=== PATIENT | male | born 1950 | race Caucasian/White ===

== ENCOUNTER 2024-08-29 12:05 | Inpatient (IN) | payer OTHER ==
[~2024-08-29] VITALS: Ht 177.8 cm; Wt 63.6 kg
[2024-08-29] VITALS (8 sets, daily range): BP systolic 111–120; BP diastolic 60–78; PULSE 131–149; RESP 16–36; O2SAT 77–94
--- NOTE | 2024-08-29 12:45 | ED.PDOC ---
History of Present Illness HPI Comments 74 y/o M, with a Hx of lung CA IV s/p left lobectomy, COPD, former tobacco use, and neuropathy, presents with c/o generalized weakness and tremors, nausea, watery-diarrhea, and poor appetite, today. Per EMS report, patient endorses on unprovoked and gradual onset of symptoms that have been persisting for the past 3-4x days. Patient was commented to have been found by EMS staff on scene with a SpO2 in the 70's RA, systolic pressure of 106, pulse rate of 130, and a blood glucose of 80. He was then stated to have been placed on 4LPM O2, with SpO2 improving to 86-88%. Patient reports no further additional relevant or pertinent Hx, with exception of finishing his chemotherapy for his lung CA on 08/20/24. He denies having any shortness of breath, chest pain, abdominal pain, vomiting, urinary symptoms, fever, chills, or other associated symptoms or modifiers at this time. Chief Complaint: General Weakness Time Seen by MD: 12:30 Primary Care Provider: PETER Reviewed Notes: Nurses Notes, Sort Manager Notes, Medications, Allergies Allergies: Coded Allergies: Tetanus Toxoid (Verified Allergy, SWELLING, 09/06/12) Information Source: Patient, Emergency Med Personnel Mode of Arrival: EMS Severity: Moderate Timing: Days Duration: Since onset Prehospital treatment: 12 Lead EKG, Accucheck, Geotechnical Field Technician, Oxygen Past Medical History PAST MEDICAL HISTORY: Cancer (lung CA IV s/p left lobectomy), COPD Past Medical History (Other): neruopathy Surgical History: Denies all surgeries Surgical History (Other): left lobectomy Family History Family History: Unobtainable Social History Smoker: Non-Smoker, Quit Greater Than 1 Year Alcohol: Denies ETOH Use Drugs: Denies Drug Use Lives In: Home Constitutional: denies: chills, diaphoresis, fatigue, fever, malaise, sweats, weakness, others EENTM: denies: blurred vision, double vision, ear bleeding, ear discharge, ear drainage, ear pain, ear ringing, eye pain, eye redness, hearing loss, mouth pain, mouth swelling, nasal discharge, nose bleeding, nose congestion, nose pain, photophobia, tearing, throat pain, throat swelling, voice changes, others Respiratory: denies: cough, hemoptysis, orthopnea, SOB at rest, shortness of breath, SOB with excertion, stridor, wheezing, others Cardiovascular: denies: chest pain, dizzy spells, diaphoresis, Dyspnea on exertion, edema, irregular heart beat, left arm pain, lightheadedness, palpitations, PND, syncope, others Gastrointestinal: reports: diarrhea, nausea, poor appetite; denies: abdomen distended, abdominal pain, blood streaked bowels, constipated, dysphagia, difficulty swallowing, hematemesis, melena, poor fluid intake, rectal bleeding, rectal pain, vomiting, others Genitourinary: denies: burning, dysuria, flank pain, frequency, hematuria, incontinence, penile discharge, penile sore, pain, testicle pain, testicle swelling, urgency, others Neurological: reports: tremors, weakness; denies: dizziness, fainting, headache, left sided numbness, left sided weakness, numbness, paresthesia, pre- existing deficit, right sided numbness, right sided weakness, seizure, speech problems, tingling, others Musculoskeletal: denies: back pain, gout, joint pain, joint swelling, muscle pain, muscle stiffness, neck pain, others Integumetry: denies: bruises, change in color, change in hair/nails, dryness, laceration, lesions, lumps, rash, wounds, others Allergic/Immunocompromised: denies: Difficulty Healing, Frequent Infections, Hives, Itching, others Hematologic/Lymphatic: denies: anemia, blood clots, easy bleeding, easy bruising, swollen glands, others Endocrine: denies: excessive hunger, excessive sweating, excessive thirst, excessive urination, flushing, intolerance to cold, intolerance to heat, unexplained weight gain, unexplained weight loss, others Psychiatric: denies: anxiety, bipolar disorder, depression, hopeless, panic disorder, schizophrenia, sleepless, suicidal, others All Other Systems: Reviewed and Negative Physical Exam General Appearance: Moderate Distress HEENT: Pale Conjuntivae (L), Pale Conjuntivae (R), Pharynx Normal, TMs Normal Neck: Full Range of Motion, Non-Tender, Normal, Normal Inspection Respiratory: Chest Non-Tender, Lungs Clear, No Accessory Muscle Use, No Respiratory Distress, Normal Breath Sounds Cardiovascular: No Edema, No JVD, No Murmur, No Gallop, Normal Peripheral Pulses, Regular Rate/Rhythm Breast Exam: Deferred Gastrointestinal: No Organomegaly, Non Tender, No Pulsatile Mass, Normal Bowel Sounds, Soft Genitalia: Deferred Pelvic: Deferred Rectal: Deferred Extremities: No calf tenderness, Normal capillary refill, Normal inspection, Normal range of motion, Non-tender, No pedal edema Musculoskeletal : Apperance: Normal Neurologic: Alert, machine long goods helper II-XII nml as Tested, Motor Weakness, Normal Affect, Normal Mood, No Sensory Deficits Cerebellar Function: Unable to Test Reflexes: Normal Skin: Dry, Pallor, Warm Lymphatic: No Adenopathy Was a procedure done? Was a procedure done?: No EKG EKG : Pulse Rate (adult): 133 [place]: Normal Cardiac Rhythm: ST Block: None Hypertrophy: None ST: Normal Differential Dx Considerations may include: viral syndrome, URI, covid19, bronchitis, PNA, pleural effusions, acute respiratory distress, electrolyte imbalance, malnutrition, dehydration, gastritis, gastroenteritis X-Ray, Labs, Meds, VS Vital Signs Date Time Temp Pulse Resp B/P (MAP) Pulse Ox O2 Delivery O2 Flow Rate FiO2 08/29/24 12:45 133 08/29/24 12:25 140 19 93 Nasal Cannula* 4 36 08/29/24 12:25 140 19 163/72 (102) 93 08/29/24 12:10 133 08/29/24 12:05 97.9 130 20 108/68 (81) 88 Lab Test 08/29/24 15:03 08/29/24 13:15 Range/Units White Blood Count Pending Red Blood Count Pending Hemoglobin Pending Hematocrit Pending Mean Corpuscular Volume Pending Mean Corpuscular Hemoglobin Pending Mean Corpuscular Hemoglobin Concent Pending Red Cell Distribution Width Pending Platelet Count Pending Mean Platelet Volume Pending Neutrophils (%) (Auto) Pending Lymphocytes (%) (Auto) Pending Monocytes (%) (Auto) Pending Basophils (%) (Auto) Pending Neutrophils # (Auto) Pending Lymphocytes # (Auto) Pending Monocytes # (Auto) Pending Sodium Level 133 L 136-145 mmol/L Potassium Level 3.7 3.5-5.1 mmol/L Chloride Level 100 98-107 mmol/L Carbon Dioxide Level 19 L 20-31 mmol/L Anion Gap 14 5-15 Blood Urea Nitrogen 50 H 9-23 mg/dL Creatinine 2.42 H 0.700-1.30 mg/dL Glomerular Filtration Rate Calc 27 >90 mL/min BUN/Creatinine Ratio 20.7 H 10.0-20.0 Serum Glucose 73 L 74-106 mg/dL Calcium Level 9.2 8.7-10.4 mg/dL Total Bilirubin 0.5 0.2-1.0 mg/dL Aspartate Amino Transferase (AST) 42 H 13-40 U/L Alanine Aminotransferase (ALT) 29 7-40 U/L Alkaline Phosphatase 132 H 46-116 U/L Total Protein 6.6 5.7-8.2 g/dL Albumin 3.9 3.2-4.8 g/dL Current Medications Medications (Trade) Dose Ordered Sig/Emma Route Start Time Stop Time Status Last Admin Sodium Chloride 500 ml @ 500 mls/hr Q1H ONCE IV 08/29/24 12:30 08/29/24 13:29 DC 08/29/24 13:42 Sodium Chloride 1,000 ml @ 1,000 mls/hr Q1H ONCE IV 08/29/24 15:15 08/29/24 16:14 08/29/24 15:14 IV Hep-Lock was established. The patient was initially given normal saline at a 500 cc bolus We have repeat the normal saline bolus at 1000 cc. The chemistry panel shows a BUN of 50 and a creatinine of 2.42 The CO2 level is 19 The patient continues to have a significant amount of diarrhea so rectal tube was placed. We are sending the stool off for C diff. We feel that the patient was severely dehydrated so we will continue to hydrate the patient. We did speak with Peter (Dr. Almaraz) The authorization number for admission is [id number] We discussed the findings with the patient and they are in agreement with the management. Time of 1ST Reevaluation: 13:00 Reevaluation 1ST: Unchanged Time of 2ND Reevaluation: 15:38 Reevaluation 2ND: Unchanged Patient Education/Counseling: Diagnosis, Treatment, Prognosis Family Education/Counseling: No Family Present Departure 1 Departure Time of Disposition: 15:38 Impression: Primary Impression: Dehydration Additional Impressions: Diarrhea Qualified Codes: R19.7 - Diarrhea, unspecified Status post chemotherapy Hypotension Qualified Codes: I95.9 - Hypotension, unspecified Disposition: 09 ADMITTED INPATIENT Admit to: Tele Condition: Fair Critical Care Note Critical Care Time?: No Stability Stability form required: Yes Unstable for transfer: Telemetry monitoring (Telemetry monitoring required), ED Physician Assesment (Clinical assesment) Heart Score Heart Score: Heart Score Response (Comments) Value History Moderate Suspicious 1 EKG Normal 0 Age >65 2 Risk Factors >3 or Hx ASHD 2 Troponin N/A 0 Total 5 I personally scribed for DEJA ARIZMENDI MD ([email or web address]) on 08/29/24 at 12:45. Electronically submitted by Placido Dumont ([email or web address]). DEJA ARIZMENDI MD Aug 29, 2024 12:45
[2024-08-29] MEDS: SODIUM CHLORIDE 0.9% 500 ML IV ONE ×3 (13:42→21:35)
[2024-08-29 13:52] LABS: Alanine Aminotransferase 29 U/L (7-40); Albumin 3.9 g/dL (3.2-4.8); Anion Gap 14 (5-15); BUN/Creatinine Ratio 20.7 (10.0-20.0); Bilirubin, Total 0.5 mg/dL (0.2-1.0); Calcium 9.2 mg/dL (8.7-10.4); Chloride 100 mmol/L (98-107); Potassium 3.7 mmol/L (3.5-5.1); Total Protein 6.6 g/dL (5.7-8.2)
[2024-08-29 13:58] LABS: Alkaline Phosphatase 132 U/L (46-116); Aspartate Aminotransferase 42 U/L (13-40); Blood Urea Nitrogen 50 mg/dL (9-23); Carbon Dioxide 19 mmol/L (20-31); Glucose 73 mg/dL (74-106); Sodium 133 mmol/L (136-145)
[2024-08-29] MEDS: SODIUM CHLORIDE 0.9% 1,000 ML IV ONE ×3 (15:14→19:20)
[2024-08-29] MEDS: NOREPINEPHRINE 8 MG/250ML KIT 250 ML IV SCH (16:23)
[2024-08-29] MEDS ORDERED: BUPR150T8 PO (16:29)
[2024-08-29] MEDS ORDERED: ATOR10TA PO (16:29)
[2024-08-29] MEDS ORDERED: GABA-1308 PO (16:29)
[2024-08-29] MEDS ORDERED: HYDR-4491 PO (16:29)
[2024-08-29] MEDS ORDERED: ZOFR4T PO (16:29)
[2024-08-29] MEDS ORDERED: MET10LQ PO (16:32)
[2024-08-29] MEDS ORDERED: FLUT0.05 INH (16:32)
[2024-08-29] MEDS ORDERED: TIOT17SP IN (16:32)
[2024-08-29] MEDS ORDERED: LEVA3NEB IN (16:48)
[2024-08-29 17:03] LABS: Urine Bacteria None Seen /hpf (None Seen)
[2024-08-29 17:17] LABS: Urine Blood Negative /uL (Negative); Urine Clarity Turbid (Clear); Urine Color Yellow (Yellow); Urine Mucus FEW (None Seen); Urine Protein, UAD 1+ (Negative); Urine Specific Gravity 1.023 (1.001-1.035); Urine Squamous Epithelial Cell FEW /hpf (<5); Urine Urobilinogen Normal (Negative); Urine WBC 10 /hpf (0 - 3); Urine pH 5.5 (5.0-9.0)
[2024-08-29 17:27] LABS: Basophils # (auto) 0 10 ^3/uL (0-0.2); Basophils % (auto) 0.2 % (0.0-2.0); Eosinophils # (auto) 0 10 ^3/uL (0-0.8); Eosinophils % (auto) 1.4 % (0.0-7.0); Hematocrit 22.2 % (41.0-53.0); Hemoglobin 7.1 g/dL (13.5-17.5); Lymphocytes # (auto) 0.2 10 ^3/uL (0.4-5.4); Lymphocytes % (auto) 38.5 % (10.0-50.0); Mean Corpuscular Volume 97.1 fL (80.0-100.0); Monocytes # (auto) 0 10 ^3/uL (0-1.3); Monocytes % (auto) 4.9 % (0.0-12.0); Neutrophils # (auto) 0.2 10 ^3/uL (1.6-8.6); Platelet Count (auto) 55 10^3/uL (140-450); Red Blood Cells 2.29 10^6/uL (4.5-5.90)
[2024-08-29 17:28] LABS: Red Cell Distribution Width 21.6 % (11.8-14.3)
[2024-08-29 17:29] LABS: White Blood Cell 0.4 10^3/uL (4.4-10.8)
[2024-08-29] MEDS: LORazepam 2MG/ML-1ML VIAL IV ONE (17:56)
[2024-08-29] MEDS: SUCCINYLCHOLINE CHLORIDE 20 MG/ML 10ML VIAL IV ONE (18:26)
[2024-08-29] MEDS: ETOMIDATE (2MG/ML) 20ML VIAL IV ONE (18:26)
[2024-08-29] MEDS: MIDAZOLAM DRIP 50 mg/50mL 50 ML IV SCH (18:30)
[2024-08-29] MEDS ORDERED: NOREPINEPHRINE 8 MG/250ML KIT 250 ML IV SCH (18:30)
[2024-08-29] MEDS: MIDAZOLAM DRIP 50 mg/50mL 50 ML IV ONE (18:51)
--- NOTE | 2024-08-29 19:00 | ECG ---
[facility] Test Date: 2024-08-29 Test Time: 12:03:28 Pat Name: ODESSA WERNER Department: ED Room: [address] [place] [address] Gender: M Esl Professor: ALBERT : 1950 Requested By: DEJA ARIZMENDI Order Number: [id number] Reading MD: Valdo Box Measurements Intervals [place] Rate: 133 P: 85 NH: 136 QRS: 86 QRSD: 72 T: -27 QT: 291 QTc: 433 Interpretive Statements Sinus tachycardia Atrial premature complexes Anterior infarct, old Borderline ST depression, diffuse leads Electronically Signed On 08-30-2024 9:23:44 PST by Valdo Box Please click the below link to view image of tracing.
[2024-08-29 19:02] LABS: INR 1.42 (0.9-1.15); Partial Thromboplastin Time 43.1 SEC (24.5-34.5); Prothrombin Time 14.7 sec (9.3-11.8)
[2024-08-29 19:18] LABS: Anisocytosis Slight; Platelet Estimate Decreased
--- NOTE | 2024-08-29 19:58 | DVH ---
EXAM: XY CHEST PORTABLE CLINICAL HISTORY: aloc TECHNIQUE: Single AP view of the chest WID: COMPARISON: None FINDINGS: Lines and tubes: Endotracheal tube projects 2.5 cm above the mariela. Gastric tube descends beneath th e level of the diaphragm and tip not visualized in field of view. Chest: The heart size and pulmonary vasculature is within normal limits. Diffuse mixed airspace opacities throughout the left lung and few patchy mixed airspace opacities in the right lung. Hyperexpansion of the lungs. Lung apices are not entirely included in the field of v iew. The osseous structures are grossly intact. IMPRESSION: 1. Endotracheal tube projects 2.5 cm above the mariela. Orogastric tube descends beneath the level of the diaphragm into the stomach and tip not visualized in field of view. 2. Diffuse mixed airspace opacities in the left lung and few mixed airspace opacities in the right priyanka ng which could reflect multifocal pneumonia. 3. Hyperexpansion of the lungs which could be COPD or emphysema.
--- NOTE | 2024-08-29 20:18 | DVHHPRES ---
History of Present Illness Resident Creating Document: TIN SINGH RESIDENT History of Present Illness Mr. Higgins, a 74-year-old male with a history of stage IV lung cancer (post left lobectomy), COPD, former tobacco use, and neuropathy, presented with generalized weakness, tremors, nausea, watery diarrhea, and poor appetite over the past 3-4 days. EMS found him with low oxygen saturation (SpO2 in the 70s), a systolic pressure of 106, a pulse rate of 130, and a blood glucose of 80. His SpO2 improved to 86-88% on 4LPM O2. He recently completed chemotherapy on 08/20/24 (details unknown). He denies shortness of breath, chest pain, abdominal pain, vomiting, urinary symptoms, fever, or chills. Prehospital treatment included oxygen therapy, cardiac monitoring, and intubation. He was successfully intubated with a 7.0 endotracheal tube, with breath sounds present on the right but decreased on the left due to the previous lobectomy. A chest X-ray shows left lower lobectomy with concerning lobar pneumonia. Patient is in sepsis and neutropenic on levophed, IV abx, intubated and sedated in ICU status. Extremely limited history. Cardiovascular: hyperipidemia Pulmonary: COPD Heme/Onc: Anemia NOS, Cancer, Other (chemopherapy ) Musculoskeletal: Osteoarthritis Rheumatologic: Rheumatoid arthritis Past Surgical History: Other (lung resection. ) Family History: None Smoke: Quit (prior ) Drugs: Other Lives: with Family Domestic Violence: Neg Review of Systems Review of Systems Unable to review the ROS as patient is intubated and sedated. Allergies: Coded Allergies: Tetanus Toxoid (Verified Allergy, Unknown, SWELLING, 08/29/24) Medications Current Medications Medications Dose Ordered Sig/Emma Route Start Time Stop Time Status Last Admin Dose Admin Norepinephrine Bitartrate 250 ml @ 3.75 mls/hr Q24H IV 08/29/24 15:30 08/29/24 16:25 3.75 MLS/HR Midazolam HCl 50 ml @ 1 mls/hr Q24H IV 08/29/24 18:30 08/29/24 18:30 5 MLS/HR Norepinephrine Bitartrate 250 ml @ 3.75 mls/hr Q24H IV 08/29/24 18:30 UNV Exam Vital Signs Vital Signs Date Time Temp Pulse Resp B/P (MAP) Pulse Ox O2 Delivery O2 Flow Rate FiO2 08/29/24 19:30 145/84 08/29/24 19:30 149 32 88 08/29/24 18:34 85 08/29/24 16:45 98.9 98.9 08/29/24 16:33 Oxymizer 8 Exam RASS -1 -2 on sedation and analgesics. Limited exam due to above. General Appearance: Other (sedated and intubated. ) HEENT: Other (dry mucosa. ) Respiratory: Other (equal respiratory movement. intubated. left lower lobe no aeration. ) Cardiovascular: Regular rate, Normal S1, Normal S2, No murmurs, Gallops, Rubs, Other (tachycardia ) Abdominal: Normal bowel sounds, Soft, No hepatospenomegaly, No masses Extremities: No clubbing, No cyanosis, No edema, No tenderness/swelling, Other (mottling. ) Skin: No significant lesion (patient is pale. ) Neuro: Other (unable to obtain ) Psych/Mental Status: Other (unable to obtain ) Labs/Xrays Labs Test 08/29/24 18:21 08/29/24 17:54 08/29/24 16:48 08/29/24 16:09 Range/Units Prothrombin Time 14.7 H 9.3-11.8 sec Prothrombin Time INR 1.42 H 0.9-1.15 Activated Partial Thromboplast Time 43.1 H 24.5-34.5 SEC POC Glucose 89 70-106 mg/dl White Blood Count 0.4 *L 4.4-10.8 10^3/uL Red Blood Count 2.29 L 4.5-5.90 10^6/uL Hemoglobin 7.1 L 13.5-17.5 g/dL Hematocrit 22.2 L 41.0-53.0 % Mean Corpuscular Volume 97.1 80.0-100.0 fL Mean Corpuscular Hemoglobin 31.0 28.0-32.0 pg Mean Corpuscular Hemoglobin Concent 32.0 32.0-36.0 g/dL Red Cell Distribution Width 21.6 H 11.8-14.3 % Platelet Count 55 L 140-450 10^3/uL Mean Platelet Volume 9.5 6.9-10.8 fL Neutrophils (%) (Auto) 55.0 37.0-80.0 % Lymphocytes (%) (Auto) 38.5 10.0-50.0 % Monocytes (%) (Auto) 4.9 0.0-12.0 % Eosinophils (%) (Auto) 1.4 0.0-7.0 % Basophils (%) (Auto) 0.2 0.0-2.0 % Neutrophils # (Auto) 0.2 L 1.6-8.6 10 ^3/uL Lymphocytes # (Auto) 0.2 L 0.4-5.4 10 ^3/uL Monocytes # (Auto) 0 0-1.3 10 ^3/uL Eosinophils # (Auto) 0 0-0.8 10 ^3/uL Basophils # (Auto) 0 0-0.2 10 ^3/uL Nucleated Red Blood Cells 1.0 % Platelet Estimate Decreased Anisocytosis (manual) Slight Urine Color Yellow Yellow Urine Clarity Turbid H Clear Urine pH 5.5 5.0-9.0 Urine Specific [place] 1.023 1.001-1.035 Urine Protein 1+ H Negative Urine Ketones Negative Negative Urine Blood Negative Negative /uL Urine Nitrite Negative Negative Urine Bilirubin Negative Negative Urine Urobilinogen Normal Negative mg/dL Urine Leukocyte Esterase Negative Negative /uL Urine RBC 1 0 - 3 /hpf Urine WBC 10 0 - 3 /hpf Urine Squamous Epithelial Cells Few <5 /hpf Urine Bacteria None seen None Seen /hpf Urine Mucus Few None Seen Urine Glucose Normal Normal mg/dL Test 08/29/24 13:15 Range/Units Sodium Level 133 L 136-145 mmol/L Potassium Level 3.7 3.5-5.1 mmol/L Chloride Level 100 98-107 mmol/L Carbon Dioxide Level 19 L 20-31 mmol/L Anion Gap 14 5-15 Blood Urea Nitrogen 50 H 9-23 mg/dL Creatinine 2.42 H 0.700-1.30 mg/dL Glomerular Filtration Rate Calc 27 >90 mL/min BUN/Creatinine Ratio 20.7 H 10.0-20.0 Serum Glucose 73 L 74-106 mg/dL Calcium Level 9.2 8.7-10.4 mg/dL Total Bilirubin 0.5 0.2-1.0 mg/dL Aspartate Amino Transferase (AST) 42 H 13-40 U/L Alanine Aminotransferase (ALT) 29 7-40 U/L Alkaline Phosphatase 132 H 46-116 U/L Total Protein 6.6 5.7-8.2 g/dL Albumin 3.9 3.2-4.8 g/dL Assessment/Plan Assessment/Plan Assessment: Mr. Higgins, a 74-year-old male with a history of stage IV lung cancer (post left lobectomy), COPD, former tobacco use, and neuropathy, presented with generalized weakness, tremors, nausea, watery diarrhea, and poor appetite over the past 3-4 days, was found by EMS with low oxygen saturation and other concerning vitals, recently completed chemotherapy, and is now intubated and sedated in ICU with sepsis and neutropenia, receiving Levophed and IV anti biotics. Plan: # community-acquired pneumonia: left lower lobe on IV antibiotics vancomycin + meropenam, intubated sedated. CT chest pending. Other viral pathologies and atypical to check. # history of lung cancer, status post left lower lobe lobectomy: noted in x-ray # ongoing chemotherapy with bone marrow suppression # septic shock : sepsis protocol, Levophed, IV fluid, antibiotics, check lactate # pancytopenia: follow lab CBC with diff. # altered level of consciousness: Likely metabolic versus toxic , treat underlying condition. Continue intubation and analgesia. # known COPD: On home inhalers, continue ipratropium and levalbuterol. # history of tobacco abuse # lung cancer on chemotherapy: Last therapy in [facility] indetails unknown. # diarrhea: Rule out intra-abdominal infection, C diff colitis test pending. CT abdomen pelvis pending. # hypotension: Keep the MAP over 65 , echo, EKG, troponin, BNP, rule out ACS # acute hypoxic respiratory failure: Patient on intubation, keep the patient's SpO2 88-92%. # peripheral neuropathy: the patient is on gabapentin at home we will consider restarting at recovery. # dyslipidemia on statin at home: starting when tolerate oral # thrombocytopenia, moderate: Trend, avoid aspirin and all sorts of heparin. # normocytic anemia: 7.1 hemoglobin, transfusion threshold 7. # to rule out PE/thromboembolism: D-dimer, chest CT pending. US DVT # neutropenia: Absolute neutrophil count less than 1500, patient is on broad- spectrum antibiotics, neutropenic precautions # anxiety depression: Patient on bupropion, we will resume when patient is more awake alert. # rheumatoid arthritis: Leflunomide, ibuprofen, hydroxychloroquine: Overall physical examination unremarkable for any septic arthritis and source of infection. PUD prophylaxis: IV protonix 40mg continue DVT prophylaxis: Lovenox 40mg avoid on SCD. Barriers to discharge: Medical diagnosis and management in progress. Patient lives with family. PCP: [facility] Specialist Relevant To Admission: Hemato oncologist with ongoing chemotherapy Case discussed with Dr. Danielle. Signed out to Overnight Resident Dr. Izquierdo. PGY 2 Code Status: Full code. Discussion needed 23 minutes Critical care time spent 47 minutes. Guarded prognosis: If patient worsens, we will need further goals of care discussion with family. Plan discussed with: Other (PRIMARY TEAM. RN) Date of Service: Aug 29, 2024 Billing Provider: TERESITA DANIELLE MD Common Visit Codes: [id number] CARE 30-74 MIN TIN SINGH RESIDENT Aug 29, 2024 20:18 TERESITA DANIELLE MD Aug 30, 2024 08:49
[2024-08-29 20:23] LABS: Base Excess -14.4 mmol/L (-2.0-3.0)
[2024-08-29] MEDS ORDERED: D5W/LACTATED RINGERS 1,000 ML IV ONE (20:30)
[2024-08-29] MEDS ORDERED: MORPHINE SULFATE INJ 2 MG/ml SYRG IV PRN (20:30)
[2024-08-29] MEDS ORDERED: NITROGLYCERIN 0.4 MG SL TAB SL PRN (20:30)
[2024-08-29] MEDS: VASOPRESSIN 20 UNIT/ML ONE (21:32)
--- NOTE | 2024-08-29 21:45 | DVH ---
EXAM: XY CHEST PORTABLE CLINICAL HISTORY: CENTRAL LINE PLACEMENT TECHNIQUE: Single view of the chest WID: COMPARISON: XY CHEST PORTABLE on DOS: 08/29/24 FINDINGS: Lines and tubes: Endotracheal tube in place projecting 8.3 cm above the mariela. Right IJ central veno us catheter projects over the low SVC. Gastric tube descends beneath the level of the diaphragm into the stomach and tip not visualized in field of view. Chest: The heart size and pulmonary vasculature is within normal limits. Diffuse mixed airspace opacities throughout the left lung. A few mixed opacities in the right mid usman g. Hyperexpansion of the lungs. Interstitial prominence of the right lung. There is no pneumothorax . The costophrenic angle on the right is not entirely included in the field of view. The osseous structures are grossly intact. IMPRESSION: 1. Right IJ central venous catheter placement projecting over the low SVC. No pneumothorax. 2. Endotracheal tube has been retracted with the tip projecting 8.3 cm above the mariela. Gastric tub e remains in place. 3. Diffuse mixed airspace opacities throughout the left lung and small mixed opacities in the right m id lung. 4. Hyperexpansion of the lungs which can be due to COPD/emphysema
[2024-08-29] MEDS: SODIUM BICARB 50mEq/50ml Vial 50 ML in SOD CHL 0.45% 1,000 ML IV SCH (22:05)
[2024-08-29 22:06] LABS: Basophils # (auto) 0 10 ^3/uL (0-0.2); Eosinophils # (auto) 0 10 ^3/uL (0-0.8); Lymphocytes # (auto) 0.2 10 ^3/uL (0.4-5.4); Platelet Count (auto) 38 10^3/uL (140-450)
[2024-08-29 22:10] LABS: Eosinophils % (auto) 0.8 % (0.0-7.0); Lymphocytes % (auto) 44.4 % (10.0-50.0); Mean Corpuscular Hemoglobin 31.3 pg (28.0-32.0); Mean Corpuscular Hgb Conc. 31.1 g/dL (32.0-36.0); Mean Corpuscular Volume 100.5 fL (80.0-100.0); Monocytes # (auto) 0 10 ^3/uL (0-1.3); Monocytes % (auto) 2.1 % (0.0-12.0); Neutrophils # (auto) 0.2 10 ^3/uL (1.6-8.6); Neutrophils % (auto) 52.7 % (37.0-80.0); Nucleated Red Blood Cells % 80.8 %; Red Blood Cells 2.09 10^6/uL (4.5-5.90); Red Cell Distribution Width 21.2 % (11.8-14.3)
[2024-08-29 22:15] LABS: Sodium 137 mmol/L (136-145)
[2024-08-29 22:16] LABS: Hemoglobin 6.5 g/dL (13.5-17.5); White Blood Cell 0.5 10^3/uL (4.4-10.8)
[2024-08-29 22:17] LABS: Platelet Estimate Decreased
[2024-08-29] MEDS: VASOPRESSIN 20 UNITS in SODIUM CHL 0.9% 99 ML IV SCH (22:17)
[2024-08-29 22:18] LABS: Calcium 7.1 mg/dL (8.7-10.4); Carbon Dioxide 13 mmol/L (20-31)
[2024-08-29] MEDS: VANCOMYCIN 1GM/250ML KIT 250 ML IV ONE (22:18)
[2024-08-29 22:21] LABS: BUN/Creatinine Ratio 16.4 (10.0-20.0)
[2024-08-29 22:24] LABS: Anion Gap 14 (5-15); Blood Urea Nitrogen 52 mg/dL (9-23); Chloride 110 mmol/L (98-107); Potassium 5.2 mmol/L (3.5-5.1)
[2024-08-29 22:26] LABS: Glucose 18 mg/dL (74-106)
[2024-08-29] MEDS: DEXTROSE (50%) 50ML SYRG IV ONE (22:27)
[2024-08-29] MEDS: DEXTROSE 50% SYRINGE 50 ML IV ONE (22:27)
[2024-08-29 22:31] LABS: Lactic Acid w/Reflex 7.5 mmol/L (0.4-2.0)
[2024-08-29] MEDS: methylPREDNISolone SOD SUCC 125 MG/2 ML VL IV ONE (23:23)
[2024-08-29] MEDS: PHENYLEPHRINE IV 250 ML IV SCH (23:30)
[2024-08-29] MEDS: SODIUM BICARB 8.4% 50Meq/50ml SYR Vial IV ONE (23:30)
[2024-08-29] MEDS: fentaNYL Drip 2500mCg/250mlNS 250 ML IV SCH (23:44)
--- NOTE | 2024-08-29 23:47 | DVHNC2 ---
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 of child care worker (Amadou) Indication: Hypotension, CVP monitoring Room prepared for procedure: Yes Upholstery Mechanic performed hand hygien: Yes Maximal sterile barrier precau: Mask/Eye shield, Sterile gown Skin Preparation: Chlorhexidine gluconate, Providine iodine Skin preparation completely dr: Yes Insertion site: Right, Internal jugular Central line catheter type: [id number] dialysis Number of lumens: 3 Central line exchanged over a: No Antiseptic ointment applied to: No Post Assessment: Chest X-Ray, Proper placement, No Pneumothorax Informed consent obtained: Yes Risks/benefits/alt described: Yes Notes Emergent procedure. Medically necessary for administration of vaso-active medications. DESCRIPTION OF PROCEDURE IN DETAIL: The patient was lying in the Trendelenburg position with head turned 30 degrees away from the insertion site. The skin was thoroughly sponged with chlorhexidine and allowed to dry. All persons involved were shielded with hair nets, face masks and sterile gowns. With sterile-gloved hands the right neck area was draped with the large disposable sterile field provided in the pre-manufactured kit. The skin and subcutaneous tissues superficial to the RIGHT internal jugular vein were anesthetized with 2 mL of 1% lidocaine. The RIGHT internal jugular vein was identified on ultrasound from the angle of the mandible down into the supraclavicular fossa using the linear ultrasound probe in the transverse orientation. The carotid artery was identified and avoided utilizing color-flow. The internal jugular vein was then placed in the center of the ultrasound field and compressed for patency. A movement artifact was identified as the needle was advanced through the skin and advanced toward the vessel. A real time hyperechoic signal revealed visualization of vascular needle entry into the lumen as blood was noted to flashback in the syringe. The needle was then held in place while the guide wire was advanced. The needle was then removed. Direct visualization of guide wire location within the vein was noted on ultrasound indicating proper placement and was document in the electronic medical record chart. A skin dilator was advanced over the guidewire and removed, and the triple-lumen catheter was then advanced over the guide wire into proper position. The guide wire was removed and discarded. The ports were aspirated which showed good blood return and then carefully flushed with normal saline. The catheter was stabilized and sutured to the skin with 2-0 silk at 2 anchor points. A sterile bio-patch and dressing was placed over the catheter, including the insertion site. The patient tolerated the procedure well. A chest x-ray was ordered for position confirmation. Post-procedure chest x-ray done. No pneumothorax Date of Service: Aug 29, 2024 Billing Provider: TEN HO Common Visit Codes: PROCEDURE ONLY Procedure Codes: 25729-MOTENY NON-TUNNEL CV CATH TEN HO Aug 29, 2024 23:46
[2024-08-30 00:18] LABS: Base Excess -21.5 mmol/L (-2.0-3.0)
[2024-08-30] MEDS: ALBUTEROL SULF 2.5 MG/0.5ML(0.5%) NEB SOLN NEB ONE (00:19)
[2024-08-30] MEDS: SODIUM BICARB 8.4% 50Meq/50ml SYR INJ IV ONE (00:22)
[2024-08-30] MEDS: MEROPENEM 1GM IVPB 50 ML IV ONE (00:24)
[2024-08-30] MEDS: DEXTROSE (50%) 50ML SYRG IV ONE ×2 (00:45→03:00)
[2024-08-30] MEDS: DEXTROSE 50% SYRINGE 50 ML IV ONE ×2 (00:45→03:06)
[2024-08-30] MEDS: SODIUM BICARB 8.4% 50Meq/50ml SYR Vial IV ONE (01:27)
[2024-08-30 02:03] VITALS: BP 98/65; PULSE 130; RESP 22
[2024-08-30 03:25] VITALS: BP 95/58; PULSE 124; RESP 22
[2024-08-30] MEDS ORDERED: DEXTROSE (50%) 50ML SYRG IV PRN (03:30)
[2024-08-30] MEDS: EPINEPHrine HCL 250 ML IV ONE (04:07)
[2024-08-30] MEDS: EPINEPHrine HCL 250 ML IV SCH (04:08)
[2024-08-30] MEDS: DEXTROSE 10% 1,000 ML IV ONE (04:10)
--- NOTE | 2024-08-30 04:29 | RESUS ---
CODE BLUE ASSESSSMENT History of Events History of Events: HR dropped from 125 to asystole. Patient is very mottled. Normal temperature. ROSC after 6 minutes.Patient previously intubated, ngt in place, vasopressors and sedation infusing. Initial Information Date: Aug 30, 2024 Time: 03:44 Location of Arrest: ER Arrest Witnessed: Yes CPR started initial time: 03:44 CPR started by whom: Hospital Staff Type of arrest: Cardiac Spontaneous Respirations: No Pulse Present: No Monitoring: ECG Crash Cart Opened and Supplies: Yes Airway Ventilation Breathing at Onset: Assisted O2 Sat by Pulse Oximetry: 0 Oxygen Delivery Method: Ambu-Bag Oxygen 100% Artificial Ventilation: Bag/Endo tube Comments: RT REMOVED THE VENTILATOR AND BAGGED PATIENT Circulation Circulation #1: Time: 03:44 Pulse Rate (adult): 0 Blood Pressure Systolic: 0 Blood Pressure Diastolic: 0 Temperature (Fahrenheit): 98.8 Circulation Comment: CPR STARTED, PULSE CHECK, ASYSTOLE Circulation #2: Time: 03:46 Pulse Rate (adult): 0 Blood Pressure Systolic: 0 Blood Pressure Diastolic: 0 Temperature (Fahrenheit): 98.8 Circulation #3: Time: 03:48 Pulse Rate (adult): 0 Blood Pressure Systolic: 0 Blood Pressure Diastolic: 0 Temperature (Fahrenheit): 98.8 Circulation #4: Time: 03:49 Pulse Rate (adult): 149 Blood Pressure Systolic: 137 Blood Pressure Diastolic: 86 Temperature (Fahrenheit): 98.8 Medications & Response Medications and Responses #1: Medication Time: 03:45 ADULT Medications Given ADULT: Epinephrine 1 mg Route of Administration: IV Heart Rate: 0 EKG Rhythm: Asystole Blood Pressure Systolic: 0 Blood Pressure Diastolic: 0 Respiratory Rate: 0 O2 Sat by Pulse Oximetry: 0 EKG Rhythm: Asystole Medications and Responses #2: Medication Time: 03:47 ADULT Medications Given ADULT: Epinephrine 1 mg Route of Administration: IV Heart Rate: 0 EKG Rhythm: Asystole Blood Pressure Systolic: 0 Blood Pressure Diastolic: 0 Respiratory Rate: 0 O2 Sat by Pulse Oximetry: 0 EKG Rhythm: Asystole Medications and Responses #3: Medication Time: 03:47 ADULT Medications Given ADULT: D50 (amp) Route of Administration: IV EKG Rhythm: Asystole Medications and Responses #4: Medication Time: 03:49 ADULT Medications Given ADULT: Sodium Bacarbinate 50 meq Route of Administration: IV EKG Rhythm: Sinus Tachycardia, 1st Degree HB Blood Pressure Systolic: 137 Blood Pressure Diastolic: 86 Respiratory Rate: 24 O2 Sat by Pulse Oximetry: 60 EKG Rhythm: Sinus Tachycardia, 1st Degree HB Procedure - NG/OG Tube Procedure - NG/OG Tube : Type of gastric tube placed: NG Gastric Tube Location: Oral Comment NGT IN PRIOR TO CODE PHUONG Nurses Notes [place] Coma Scale Eye Opening: None (1) [place] Coma Scale Verbal: None (1) [place] Coma Scale Motor: None (1) Pupil Reaction: Sluggish EKG Rhythm: Sinus Tachycardia, 1st Degree HB Time Code Ended Time Code Ended: 03:49 Post Arrest Status: Ventilated Outcome of code: Successful Family notified: Yes Attending called: Yes Code Team Present: DR SHAY,ER MODERN LANGUAGES PROFESSOR ED, RN: BRYANT MARIE FELIX, BELINDA TECH: SANDRA WAGNER Post Resuscitation Neurologica Pupil Size: 4 Comment: SLUGGISH ROSC Time of ROSC: 03:49 Date of Service: Aug 30, 2024 Billing Provider: TERESITA RENDON MD Common Visit Codes: PROCEDURE ONLY Procedure Codes: [id number] CODE CORBIN MODI Aug 30, 2024 04:29 TERESITA RENDON MD Aug 30, 2024 08:55
[2024-08-30 04:45] VITALS: RESP 19
[2024-08-30] MEDS: ACCU-CHEK COMFORT CURVE STRIP VI SCH (04:47)
[2024-08-30] MEDS: VASOPRESSIN 20 UNIT/ML ONE (04:55)
[2024-08-30 05:00] VITALS: BP 73/48
[2024-08-30 05:03] LABS: COVID19 ANTIGEN SOFIA FIA NEGATIVE (NEGATIVE); Rapid Influenza A Negative (Negative); Rapid Influenza B Negative (Negative)
[2024-08-30 05:10] LABS: Anion Gap 18.00001 (5-15)
[2024-08-30 05:15] VITALS: PULSE 10; TEMP 98.4
[2024-08-30 05:15] LABS: BUN/Creatinine Ratio 12.3 (10.0-20.0)
[2024-08-30 05:28] LABS: Hematocrit 44.2 % (41.0-53.0); Hemoglobin 12.2 g/dL (13.5-17.5); Mean Corpuscular Hemoglobin 30.7 pg (28.0-32.0); Mean Corpuscular Hgb Conc. 27.6 g/dL (32.0-36.0); Mean Corpuscular Volume 110.9 fL (80.0-100.0); Platelet Count (auto) 24 10^3/uL (140-450); Red Blood Cells 3.98 10^6/uL (4.5-5.90); White Blood Cell 2.6 10^3/uL (4.4-10.8)
[2024-08-30 05:29] LABS: Red Cell Distribution Width 20.2 % (11.8-14.3)
[2024-08-30 05:32] LABS: Basophils % (manual) 0 (0.0-2.0); Blast Cells 0; Eosinophils % (manual) 0 (0-7); Metamyelocytes % 0; Myelocytes % 0; Promyelocytes % 0; Reactive Lymphocytes 0
[2024-08-30 05:34] LABS: Alanine Aminotransferase 3952 U/L (7-40); Albumin 2.1 g/dL (3.2-4.8); Alkaline Phosphatase 149 U/L (46-116); Bilirubin, Total 0.7 mg/dL (0.2-1.0); Blood Urea Nitrogen 39 mg/dL (9-23); Calcium 7.8 mg/dL (8.7-10.4); Chloride 111 mmol/L (98-107); Glucose 53 mg/dL (74-106); Potassium 6.3 mmol/L (3.5-5.1); Sodium 139 mmol/L (136-145)
[2024-08-30 05:35] LABS: Carbon Dioxide < 10 mmol/L (20-31)
--- NOTE | 2024-08-30 08:02 | RESUS ---
CODE BLUE ASSESSSMENT History of Events History of Events: SECOND CODE BLUE LASTING ONLY 5 MINUTES Initial Information Time: 03:44 Location of Arrest: ER Arrest Witnessed: Yes CPR started initial time: 03:44 CPR started by whom: Hospital Staff Type of arrest: Cardiac Spontaneous Respirations: No Pulse Present: No Monitoring: ECG, Pulse Oximetry Crash Cart Opened and Supplies: Yes Airway Ventilation Breathing at Onset: Assisted Oxygen Delivery Method: Ambu-Bag Circulation Circulation : Time: 03:44 Pulse Rate (adult): 0 Blood Pressure Systolic: 0 Blood Pressure Diastolic: 0 Temperature (Fahrenheit): 101 Medications & Response Medications and Responses #1: ADULT Medications Given ADULT: Epinephrine 1 mg Route of Administration: IV EKG Rhythm: Atrial Fibrillation, Asystole Blood Pressure Systolic: 0 (0) Blood Pressure Diastolic: 0 Respiratory Rate: 0 O2 Sat by Pulse Oximetry: 0 EKG Rhythm: Asystole Medications and Responses #2: Medication Time: 03:47 ADULT Medications Given ADULT: Epinephrine 1 mg Route of Administration: IV Heart Rate: 0 EKG Rhythm: Asystole Blood Pressure Systolic: 0 Blood Pressure Diastolic: 0 Respiratory Rate: 0 EKG Rhythm: Asystole Medications and Responses #3: Medication Time: 03:47 ADULT Medications Given ADULT: D50 (amp) Route of Administration: IV EKG Rhythm: Asystole Blood Pressure Systolic: 0 Blood Pressure Diastolic: 0 Respiratory Rate: 0 O2 Sat by Pulse Oximetry: 0 EKG Rhythm: Asystole Medications and Responses #4: Medication Time: 03:49 ADULT Medications Given ADULT: Sodium Bacarbinate 50 meq EKG Rhythm: Sinus Tachycardia Blood Pressure Systolic: 102 Blood Pressure Diastolic: 53 Respiratory Rate: 24 O2 Sat by Pulse Oximetry: 55 EKG Rhythm: Sinus Tachycardia, Atrial Flutter Nurses Notes [place] Coma Scale Eye Opening: None (1) [place] Coma Scale Verbal: None (1) [place] Coma Scale Motor: None (1) Pupil Reaction: Sluggish EKG Rhythm: Sinus Tachycardia, 1st Degree HB Time Code Ended Outcome of code: Successful Post Resuscitation Neurologica Pupil Size: 5 Comment: SLUGGISH ROSC Time of ROSC: 03:49 CORBIN LUCIA Aug 30, 2024 08:02
--- NOTE | 2024-08-30 08:02 | RESUS ---
CODE BLUE ASSESSSMENT History of Events History of Events: Code blue. Family came in. Now a DNR. Patient . Initial Information Date: Aug 30, 2024 Time: 05:01 Location of Arrest: ER Arrest Witnessed: Yes CPR started initial time: 05:01 CPR started by whom: Hospital Staff Type of arrest: Cardiac Spontaneous Respirations: No Pulse Present: No Monitoring: ECG Crash Cart Opened and Supplies: Yes Airway Ventilation Breathing at Onset: Assisted O2 Sat by Pulse Oximetry: 0 Oxygen Delivery Method: Ambu-Bag Circulation Circulation #1: Time: 05:01 Pulse Rate (adult): 0 Blood Pressure Systolic: 0 Blood Pressure Diastolic: 0 Temperature (Fahrenheit): 101 Circulation Comment: pulse check, cpr Circulation #2: Time: 05:03 Pulse Rate (adult): 0 Blood Pressure Systolic: 0 Blood Pressure Diastolic: 0 Temperature (Fahrenheit): 101 Circulation Comment: pulse check, cpr Circulation #3: Time: 05:05 Pulse Rate (adult): 0 Blood Pressure Systolic: 0 Blood Pressure Diastolic: 0 Temperature (Fahrenheit): 101 Circulation Comment: pulse check, cpr Medications & Response Medications and Responses : Medication Time: 05:02 ADULT Medications Given ADULT: Epinephrine 1 mg Heart Rate: 0 Blood Pressure Systolic: 0 Blood Pressure Diastolic: 0 Respiratory Rate: 0 O2 Sat by Pulse Oximetry: 0 EKG Rhythm: Asystole Nurses Notes [place] Coma Scale Eye Opening: None (1) [place] Coma Scale Verbal: None (1) [place] Coma Scale Motor: None (1) Pupil Reaction: Non Reactive EKG Rhythm: 1st Degree HB, Asystole Time Code Ended Time Code Ended: 05:07 Post Arrest Status: Outcome of code: Unsuccessful Patient pronounced by: Dr Valverde Time patient pronounced: 05:07 Code Team Present: DR VALVERDE, ER REFRACTORY MIXER ED, APPLICATION TESTER RAJNI ALANIZ. RT: MIGUEL A Post Resuscitation Neurologica Pupil Size: 5 Comment: CORBIN SALES Aug 30, 2024 08:02
[2024-08-30 09:22] LABS: Band Neutrophils % (manual) 8; Lymphocytes % (manual) 36 (10.0-50.0); Monocytes % (manual) 9 (0-12)
[2024-08-30 09:23] LABS: Giant Platelets Few; Platelet Estimate Decrea
[2024-08-30] MEDS ORDERED: MEROPENEM 1GM IVPB 50 ML IV SCH (10:00)
[2024-08-30] MEDS ORDERED: methylPREDNISolone SOD SUCC 125 MG/2 ML VL IV SCH (10:00)
--- NOTE | 2024-08-30 15:58 | DVHDSRES ---
Discharge Summary Date of Admission Resident Creating Document: TIN SINGH RESIDENT Aug 29, 2024 at 20:18 Date of Discharge: Aug 30, 2024 Admitting Diagnosis ALOC , acute hypoxic respiratory failure needing intubation. Labs/Diagnostic Data: Laboratory Results Test 08/30/24 05:04 08/30/24 04:45 08/30/24 03:30 08/30/24 02:10 POC Glucose 77 mg/dl (70-106) White Blood Count 2.6 10^3/uL (4.4-10.8) Red Blood Count 3.98 10^6/uL (4.5-5.90) Hemoglobin 12.2 g/dL (13.5-17.5) Hematocrit 44.2 % (41.0-53.0) Mean Corpuscular Volume 110.9 fL (80.0-100.0) Mean Corpuscular Hemoglobin 30.7 pg (28.0-32.0) Mean Corpuscular Hemoglobin Concent 27.6 g/dL (32.0-36.0) Red Cell Distribution Width 20.2 % (11.8-14.3) Platelet Count 24 10^3/uL (140-450) Mean Platelet Volume 9.5 fL (6.9-10.8) Neutrophils (%) (Auto) % (37.0-80.0) Lymphocytes (%) (Auto) % (10.0-50.0) Monocytes (%) (Auto) % (0.0-12.0) Basophils (%) (Auto) % (0.0-2.0) Neutrophils # (Auto) 10 ^3/uL (1.6-8.6) Lymphocytes # (Auto) 10 ^3/uL (0.4-5.4) Monocytes # (Auto) 10 ^3/uL (0-1.3) Differential Total Cells Counted 100.0 (100) Neutrophils % (Manual) 47 (37.0-80.0) Band Neutrophils % (Manual) 8 Lymphocytes % (Manual) 36 (10.0-50.0) Monocytes % (Manual) 9 (0-12) Eosinophils % (Manual) 0 (0-7) Basophils % (Manual) 0 (0.0-2.0) Metamyelocytes % (manual) 0 Myelocytes % (Manual) 0 Promyelocytes % (Manual) 0 Blast Cells % (Manual) 0 Nucleated Red Blood Cells 9.0 % Reactive Lymphocytes 0 Platelet Estimate Decrea Giant Platelets Few Sodium Level 139 mmol/L (136-145) Potassium Level 6.3 mmol/L (3.5-5.1) Chloride Level 111 mmol/L (98-107) Carbon Dioxide Level < 10 mmol/L (20-31) Anion Gap 18.16672 (5-15) Blood Urea Nitrogen 39 mg/dL (9-23) Creatinine 3.16 mg/dL (0.700-1.30) Glomerular Filtration Rate Calc 20 mL/min (>90) BUN/Creatinine Ratio 12.3 (10.0-20.0) Serum Glucose 53 mg/dL (74-106) Calcium Level 7.8 mg/dL (8.7-10.4) Total Bilirubin 0.7 mg/dL (0.2-1.0) Aspartate Amino Transferase (AST) U/L (13-40) Alanine Aminotransferase (ALT) 3952 U/L (7-40) Alkaline Phosphatase 149 U/L (46-116) Total Protein 4.0 g/dL (5.7-8.2) Albumin 2.1 g/dL (3.2-4.8) Influenza Type A Antigen Negative (Negative) Influenza Type B Antigen Negative (Negative) SARS-CoV-2 Antigen (Rapid) Negative (NEGATIVE) Lactic Acid Level 10.2 mmol/L (0.4-2.0) Test 08/30/24 00:10 08/29/24 21:52 08/29/24 18:21 08/29/24 16:48 Blood Gas Specimen Type Arterial Blood Gas Sample Site Left radial Blood Gas Patient Temperature 37.0 Arterial Blood Date Drawn [id number] Arterial Blood pH 7.023 (7.350-7.450) Arterial Blood Partial Pressure CO2 31.7 mmHg (35.0-48.0) Arterial Blood Partial Pressure O2 113.2 mmHg (83.0-108.0) Arterial Blood HCO3 8.1 mmol/L (21.0-28.0) Arterial Blood Oxygen Saturation 96.7 % (94.0-98.0) Arterial Blood Base Excess -21.5 mmol/L (-2.0-3.0) Arterial Blood Oxyhemoglobin 93.0 % (94.0-98.0) Arterial Blood Carboxyhemoglobin 3.6 % (0.5-1.5) Arterial Blood Methemoglobin 0.2 % (0.0-1.5) Stanislav Test Modified Blood Gas Total Hemoglobin 9.60 g/dL (13.5-17.5) Blood Gas Set Respiration Rate 20.0 Blood Gas Modality Vent - ac FiO2 % 90.0 Blood Gas Tidal Volume 450.0 Blood Gas PEEP or CPAP 5.0 Blood Gas Critical Value Read Back Yes Blood Gas Notified Whom Davon mcnulty md Blood Gas Notified Time [id number] Blood Gas Notified By Search Optimization Analyst aimee mancilla Eosinophils (%) (Auto) 0.8 % (0.0-7.0) Eosinophils # (Auto) 0 10 ^3/uL (0-0.8) Basophils # (Auto) 0 10 ^3/uL (0-0.2) D-Dimer, Quantitative 12.33 mg/L FEU (0.0-0.49) Troponin I High Sensitivity 133 ng/L (</=54) B-Type Natriuretic Peptide 282.48 pg/mL (0-100) Thyroid Stimulating Hormone (TSH) 0.76 uIU/mL (0.55-4.78) Plasma/Serum Blood Alcohol 6.9 mg/dL (<10) Prothrombin Time 14.7 sec (9.3-11.8) Prothrombin Time INR 1.42 (0.9-1.15) Activated Partial Thromboplast Time 43.1 SEC (24.5-34.5) Anisocytosis (manual) Slight Test 08/29/24 16:09 Urine Color Yellow (Yellow) Urine Clarity Turbid (Clear) Urine pH 5.5 (5.0-9.0) Urine Specific [place] 1.023 (1.001-1.035) Urine Protein 1+ (Negative) Urine Ketones Negative (Negative) Urine Blood Negative /uL (Negative) Urine Nitrite Negative (Negative) Urine Bilirubin Negative (Negative) Urine Urobilinogen Normal mg/dL (Negative) Urine Leukocyte Esterase Negative /uL (Negative) Urine RBC 1 /hpf (0 - 3) Urine WBC 10 /hpf (0 - 3) Urine Squamous Epithelial Cells Few /hpf (<5) Urine Bacteria None seen /hpf (None Seen) Urine Mucus Few (None Seen) Urine Glucose Normal mg/dL (Normal) Other Laboratory Tests 08/30/24 04:45 Brief Hx & Hospital Course: Hospitalization summary: Mr. Higgins, a 74-year-old with a history of stage IV lung cancer, COPD, and other health issues, presented with severe symptoms and was found by EMS with low oxygen levels. After recently completing chemotherapy, he was admitted to the ICU with sepsis and neutropenia, receiving Levophed and IV antibiotics. Despite extensive resuscitative efforts, he experienced severe complications including hypotensive shock, metabolic acidosis, multiorgan failure, and infections. Unfortunately, he coded multiple times and was unable to sustain spontaneous breathing and cardiac function, ultimately being declared clinically . Medical conditions treated in hospital: # community-acquired pneumonia left lobe, gram-ve , gram +ve # history of lung cancer, status post left lower lobe lobectomy # hypotension, ongoing chemotherapy with bone marrow suppression # septic shock due to above # pancytopenia secondary to chemotherapy and sepsis. # metabolic versus toxic encephalopathy # known COPD, likely exacerbation. # history of tobacco abuse # lung cancer on chemotherapy # diarrhea due to C diff colitis # acute hypoxic respiratory failure needing intubation and mechanical ventilation. # peripheral neuropathy, known. # dyslipidemia on statin at home # thrombocytopenia, moderate # Macrocytic anemia, 7.1 hemoglobin. # Cannot rule out PE/thromboembolism high D-dimer. # Absolute neutropenia on neutropenic precautions # anxiety / depression # uncomplicated rheumatoid arthritis # Type II Nstemi # Anion-gap metabolic acidosis , lactic acidosis. # Transamnites likely due to shock liver. # Acute renal failure. # Recurrent cardiorespiratory arrest. The patient prior to examination in this AM. The family was provided empathic support and paperwork completed. Case discussed with Dr. Danielle. Critical care time spent 47 minutes. Discharge discussion needed 33 minutes of detailed planning. Operations or Procedures [place] [address] Ph: [phone] DIAGNOSTIC IMAGING Diagnostic Imaging Report : [id number] Signed PATIENT: ODESSA HIGGINS ACCT: [id number] UNIT: [id number] : 1950 LOC: TELE ROOM / BED: 1022-ERT / A AGE / SEX: 74 / M ADM STATUS: ADM IN SERVICE 26 ORDERING PHYSICIAN: TEN MCNULTY PROCEDURE(s): CXRP - CHEST PORTABLE REASON: CENTRAL LINE PLACEMENT ORDER NUMBER(s): [id number], ACCESSION NUMBER(s): [id number] EXAM: XY CHEST PORTABLE CLINICAL HISTORY: CENTRAL LINE PLACEMENT TECHNIQUE: Single view of the chest WID: COMPARISON: XY CHEST PORTABLE on DOS: 08/29/24 FINDINGS: Lines and tubes: Endotracheal tube in place projecting 8.3 cm above the mariela. Right IJ central venous catheter projects over the low SVC. Gastric tube descends beneath the level of the diaphragm into the stomach and tip not visualized in field of view. Chest: The heart size and pulmonary vasculature is within normal limits. Diffuse mixed airspace opacities throughout the left lung. A few mixed opacities in the right mid lung. Hyperexpansion of the lungs. Interstitial prominence of the right lung. There is no pneumothorax. The costophrenic angle on the right is not entirely included in the field of view. The osseous structures are grossly intact. IMPRESSION: 1. Right IJ central venous catheter placement projecting over the low SVC. No pneumothorax. 2. Endotracheal tube has been retracted with the tip projecting 8.3 cm above the mariela. Gastric tube remains in place. 3. Diffuse mixed airspace opacities throughout the left lung and small mixed opacities in the right mid lung. 4. Hyperexpansion of the lungs which can be due to COPD/emphysema ATED BY: DK RAMÍREZ MD DICTATED DATE/TIME: 08/29/242142 SIGNED BY: DK RAMÍREZ MD SIGNED DATE/TIME: 08/29/242142 CC: [place] [address] Ph: [phone] DIAGNOSTIC IMAGING Diagnostic Imaging Report : [id number] Signed PATIENT: ODESSA HIGGINS ACCT: [id number] UNIT: [id number] : 1950 LOC: ER ROOM / BED: / AGE / SEX: 74 / M ADM STATUS: REG ER SERVICE 18 ORDERING PHYSICIAN: DEJA ARIZMENDI MD PROCEDURE(s): CXRP - CHEST PORTABLE REASON: aloc ORDER NUMBER(s): [id number], ACCESSION NUMBER(s): [id number] EXAM: XY CHEST PORTABLE CLINICAL HISTORY: aloc TECHNIQUE: Single AP view of the chest WID: COMPARISON: None FINDINGS: Lines and tubes: Endotracheal tube projects 2.5 cm above the mariela. Gastric tube descends beneath the level of the diaphragm and tip not visualized in field of view. Chest: The heart size and pulmonary vasculature is within normal limits. Diffuse mixed airspace opacities throughout the left lung and few patchy mixed airspace opacities in the right lung. Hyperexpansion of the lungs. Lung apices are not entirely included in the field of view. The osseous structures are grossly intact. IMPRESSION: 1. Endotracheal tube projects 2.5 cm above the mariela. Orogastric tube descends beneath the level of the diaphragm into the stomach and tip not visualized in field of view. 2. Diffuse mixed airspace opacities in the left lung and few mixed airspace opacities in the right lung which could reflect multifocal pneumonia. 3. Hyperexpansion of the lungs which could be COPD or emphysema. ATED BY: DK RAMÍREZ MD DICTATED DATE/TIME: 08/29/241955 SIGNED BY: DK RAMÍREZ MD SIGNED DATE/TIME: 08/29/241955 CC: EKG Name: ODESSA HIGGINS Acct: [id number] [place] [address] ELECTROCARDIOGRAM REPORT PATIENT: ODESSA HIGGINS ACCT: [id number] : 1950 LOC: TELE ROOM / BED: [address] [place] [address] / AGE / SEX: 74 / M ADM STATUS: ADM IN SERVICE 1213 UNIT: [id number] ORDERING PHYSICIAN: DEJA ARIZMENDI MD PROCEDURE(s): EKG - ELECTROCARDIGRAM ORDER NUMBER(s): [id number], ACCESSION NUMBER(s): [id number] [facility] Test Date: 2024-08-29 Test Time: 12:03:28 Pat Name: ODESSA HIGGINS Department: ED Room: [address] [place] [address] 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 DICTATED BY:DOC SPAIN Sr., MD DICTATED DATE/TIME:08/29/24 1203 ELECTRONICALLY SIGNED BY:DOC SPAIN Sr., MD 08/30/24 0931 ELECTRONICALLY CO-SIGNED BY: Condition at Discharge: Undetermined Final Diagnosis/Problems List # community-acquired pneumonia left lobe, gram-ve , gram +ve # history of lung cancer, status post left lower lobe lobectomy # hypotension, ongoing chemotherapy with bone marrow suppression # septic shock due to above # pancytopenia secondary to chemotherapy and sepsis. # metabolic versus toxic encephalopathy # known COPD, likely exacerbation. # history of tobacco abuse # lung cancer on chemotherapy # diarrhea due to C diff colitis # acute hypoxic respiratory failure needing intubation and mechanical ventilation. # peripheral neuropathy, known. # dyslipidemia on statin at home # thrombocytopenia, moderate # Macrocytic anemia, 7.1 hemoglobin. # Cannot rule out PE/thromboembolism high D-dimer. # Absolute neutropenia on neutropenic precautions # anxiety / depression # uncomplicated rheumatoid arthritis # Type II Nstemi # Anion-gap metabolic acidosis , lactic acidosis. # Transamnites likely due to shock liver. # Acute renal failure. # Recurrent cardiorespiratory arrest. Discharge Disposition: at Hospital Discharge Statement: "Patient was advised to return to the ER or call 911 if any headaches, dizziness, shortness of breath, chest pain, abdominal pain, bleeding, fevers, or worsening of medical condition. Patient was counseled about treatment plan, medications, possible side effects, patientverbalized understanding. All questions were answered to the best of my ability. This discharge took greater then 30 minutes in planning, reviewing documentation, counseling the patient, and discussing with other team members." ASSESSMENT ASSESSMENT Assessment Date of Service: Aug 30, 2024 Billing Provider: TERESITA DANIELLE MD Common Visit Codes: [id number] DISCH DAY <30MIN TIN SINGH Aug 30, 2024 15:58 TERESITA DANIELLE MD Aug 30, 2024 17:26
== END 2024-08-30 05:20 | DRG 871 ==
LOC: EDBD 12:05 → ER 12:05 → TELE 20:18
PROVIDERS: ATTEND Internal Medicine
PROC: 02HV33Z Insertion of Infusion Device into Superior Vena Cava, Percutaneous Approach (ICD-10-PCS; principal; 2024-08-29)
PROC: B548ZZA Ultrasonography of Superior Vena Cava, Guidance (ICD-10-PCS; 2024-08-29)
PROC: 5A1935Z Respiratory Ventilation, Less than 24 Consecutive Hours (ICD-10-PCS; 2024-08-29)
PROC: 0BH17EZ Insertion of Endotracheal Airway into Trachea, Via Natural or Artificial Opening (ICD-10-PCS; 2024-08-29)
PROC: 05H933Z Insertion of Infusion Device into Right Brachial Vein, Percutaneous Approach (ICD-10-PCS; 2024-08-29)
PROC: B54MZZA Ultrasonography of Right Upper Extremity Veins, Guidance (ICD-10-PCS; 2024-08-29)
PROC: 30233N1 Transfusion of Nonautologous Red Blood Cells into Peripheral Vein, Percutaneous Approach (ICD-10-PCS; 2024-08-29)
PROC: 5A12012 Performance of Cardiac Output, Single, Manual (ICD-10-PCS; 2024-08-30)
DX: A41.9 Sepsis, unspecified organism (principal); J15.69 Pneumonia due to other Gram-negative bacteria; R65.21 Severe sepsis with septic shock; J96.01 Acute respiratory failure with hypoxia; J15.9 Unspecified bacterial pneumonia; D61.818 Other pancytopenia; J44.0 Chronic obstructive pulmonary disease with (acute) lower respiratory infection; E86.0 Dehydration; I95.9 Hypotension, unspecified; D64.9 Anemia, unspecified; D69.6 Thrombocytopenia, unspecified; E78.5 Hyperlipidemia, unspecified; G62.9 Polyneuropathy, unspecified; F41.8 Other specified anxiety disorders; M06.9 Rheumatoid arthritis, unspecified; I46.9 Cardiac arrest, cause unspecified; Z85.118 Personal history of other malignant neoplasm of bronchus and lung; Z87.891 Personal history of nicotine dependence; Z92.21 Personal history of antineoplastic chemotherapy
CPT/HCPCS: 36415; 36556; 36600; 71045; 80048; 80053; 80320; 81001; 82805; 82962; 83605; 83880; 84443; 84484; 85007; 85025; 85027; 85379; 85610; 85730; 86850; 86900; 86901; 86920; 87040; 87070; 87077; 87086; 87186; 87205; 87278; 87426; 87493; 87804; 93005; 94002; G0378; J0171; J0330; J2185